=== PATIENT | female | born 1975 | race African-American/Black ===

== ENCOUNTER 2018-03-02 20:53 | Observation (INO) | payer SELFPAY ==
[~2018-03-02] VITALS: Ht 165.1 cm; Wt 81.6 kg
[2018-03-02] MEDS ORDERED: PREN1TAB33 MT (21:00)
== END 2018-03-02 23:22 | disposition home or self-care (01) ==
LOC: L&D 20:53
PROVIDERS: ADMIT Psychiatry & Neurology Neurology; ATTEND Psychiatry & Neurology Neurology
DX: O26.892 Other specified pregnancy related conditions, second trimester (principal); R10.9 Unspecified abdominal pain; Z3A.26 26 weeks gestation of pregnancy
CPT/HCPCS: 82731; 99281; G0378